=== PATIENT | female | born 1945 | race Caucasian/White ===

== ENCOUNTER 2020-09-13 16:03 | Inpatient (IN) ==
[2020-09-13] MEDS ORDERED: 0.9 % Sodium Chloride 1,000 ML IVC ONE (18:14)
[2020-09-13 19:06] LABS: Bacteria,Urine Few per hpf (None-Few); Bilirubin,Urine Negative (Negative); Blood,Urine Small (Negative); Clarity,Urine Clear (Clear); Color,Urine Light-Yellow (Yellow); Glucose,Urine (UA) Normal (Normal); Ketones,Urine Negative (Negative); Leukocyte Esterase,Urine Large (Negative); Nitrite,Urine Negative (Negative); Protein,Urine 30 mg/dL (Neg-Trace); Specific Gravity,Urine 1.015 (1.010-1.025); Urobilinogen,Urine Normal (Normal); WBC,Urine 30-50 per hpf (0-3)
[2020-09-13 19:13] LABS: Mean Platelet Volume 9.4 fL (9.4-12.4); Nucleated Red Blood Cells 0.2 /100 WBC (0)
[2020-09-13 19:14] LABS: Hematocrit 41.1 % (35.3-44.9); Mean Corpuscular HGB Conc 29.2 g/dL (31.6-35.5); Mean Corpuscular Hemoglobin 23.3 pg (28.0-33.3); Mean Corpuscular Volume 79.8 fL (83.0-100.0); Platelet Count 679 K/mcL (140-400); Red Blood Count 5.15 M/mcL (3.82-4.97); Red Cell Distribution Width 21.2 % (11.5-14.5); White Blood Count 23.3 K/mcL (4.3-11.1)
[2020-09-13 19:21] LABS: INR 1.2; Prothrombin Time 14.3 Seconds (9.4-12.1)
[2020-09-13 19:24] LABS: Activated Partial Thrombo Time 33.8 Seconds (26.0-36.0)
[2020-09-13 19:28] LABS: Albumin/Globulin Ratio 1.5 (1.1-2.2); Bilirubin,Total 2.3 mg/dL (0.3-1.0); Calcium 8.8 mg/dL (8.6-10.3); Globulin 2.6 g/dL (2.4-3.5); Potassium 4.8 mEq/L (3.5-5.1); Total Protein 6.6 g/dL (6.4-8.9)
[2020-09-13 20:05] LABS: Basophils # 0.5 K/mcL (0.0-0.2); Eosinophils # 0.5 K/mcL (0.0-0.6); Lymphocytes # 1.4 K/mcL (0.6-4.6); Monocytes # 0.5 K/mcL (0.0-1.3); Neutrophils # 19.6 K/mcL (1.6-8.9)
[2020-09-13 20:06] LABS: Anisocytosis 2+ (Not Present); Hypochromasia Present (Not Present); Platelet Estimate Increased (Normal); Reactive Lymphocytes Present (Not Present); Toxic Granulation Present (Not Present)
[2020-09-13] MEDS ORDERED: Ondansetron 4 MG/2 ML VIAL IVP PRN (21:21)
[2020-09-13] MEDS ORDERED: *HR* HYDROcodone/Acet 5/325 mg TABLET PO PRN (21:21)
[2020-09-13] MEDS ORDERED: Naloxone 0.4 MG/ML INJ IVP PRN (21:21)
[2020-09-13] MEDS ORDERED: Acetaminophen 325 MG TABLET PO PRN (21:21)
[2020-09-13] MEDS ORDERED: Melatonin 3 MG TABLET PO PRN (21:21)
[2020-09-13] MEDS ORDERED: Dextrose Gel 15 GM/37.5 ML TUBE PO PRN ×2 (21:30)
[2020-09-13] MEDS ORDERED: D5% in Water 1,000 ML IVC PRN (21:30)
[2020-09-13] MEDS ORDERED: *HR* Dextrose 50 % in Water (Vial) 50 ML VIAL IVP PRN (21:30)
[2020-09-13 21:33] LABS: Phosphorous 4.7 mg/dL (2.7-4.5); Uric Acid 8.7 mg/dL (2.3-7.6)
[2020-09-13] MEDS: Ringers Solution, Lactated 1,000 ML IVC SCH (22:14)
[2020-09-13] MEDS: *HR* Heparin 5,000 UNIT/ML VIAL SQ SCH (22:15)
[2020-09-14 05:18] LABS: Hematocrit 41.4 % (35.3-44.9); Mean Corpuscular Hemoglobin 22.8 pg (28.0-33.3); Mean Corpuscular Volume 78.7 fL (83.0-100.0); Mean Platelet Volume 9.4 fL (9.4-12.4); Nucleated Red Blood Cells 0.2 /100 WBC (0); Platelet Count 696 K/mcL (140-400); Red Blood Count 5.26 M/mcL (3.82-4.97); Red Cell Distribution Width 21.2 % (11.5-14.5); White Blood Count 24.3 K/mcL (4.3-11.1)
[2020-09-14 05:23] LABS: Protein/Creatinine Ratio,Urine 0.42 mg/mg (0.00-0.20); Sodium, Urine 60.2 mEq/L
[2020-09-14 05:24] LABS: INR 1.3
[2020-09-14] MEDS: *HR* Heparin 5,000 UNIT/ML VIAL SQ SCH ×3 (05:31→23:12)
[2020-09-14] MEDS: Ringers Solution, Lactated 1,000 ML IVC SCH (05:32)
[2020-09-14 05:34] LABS: Calcium 8.9 mg/dL (8.6-10.3); Magnesium 1.6 mg/dL (1.6-2.6); Potassium 4.4 mEq/L (3.5-5.1)
[2020-09-14 05:45] LABS: Anisocytosis 2+ (Not Present); Eosinophils # 0.5 K/mcL (0.0-0.6); Large Platelets Present (Not Present); Lymphocytes # 2.4 K/mcL (0.6-4.6); Monocytes # 1.5 K/mcL (0.0-1.3); Platelet Estimate Marked Increase (Normal)
[2020-09-14 05:46] LABS: Microcytosis Present (Not Present)
[2020-09-14] MEDS: Insulin LISPRO 300 UNITS/3 ML VIAL SUBQ SCH ×4 (07:18→23:34)
[2020-09-14] MEDS ORDERED: cefTRIAXone 1,000 MG in Water for inj. (sterile) 10 ML IVP SCH (09:00)
[2020-09-14] MEDS ORDERED: Isovue-300 50ML VIAL ONE (11:47)
[2020-09-14] MEDS ORDERED: Albuterol 2.5 MG/3 ML NEBULIZER IH PRN ×2 (12:56→13:06)
[2020-09-14] MEDS ORDERED: Albuterol 2.5 MG/3 ML NEBULIZER ONE (12:59)
[2020-09-14] MEDS ORDERED: Nitroglycerin 0.4 MG TAB.SUBL SL PRN (13:06)
[2020-09-14] MEDS ORDERED: Naloxone 0.4 MG/ML INJ IVP PRN ×2 (13:06→15:08)
[2020-09-14] MEDS ORDERED: Ondansetron 4 MG/2 ML VIAL IVP PRN ×2 (13:06→15:08)
[2020-09-14] MEDS ORDERED: *HR* FentaNYL (PF) 100 MCG/2 ML VIAL IVP PRN (13:06)
[2020-09-14] MEDS ORDERED: *HR* Propofol 200 MG/20 ML VIAL IVP ONE ×2 (13:14→13:51)
[2020-09-14] MEDS ORDERED: Lidocaine -MPF 2% 2 ML VIAL ONE (13:16)
[2020-09-14] MEDS ORDERED: Ondansetron 4 MG/2 ML VIAL ONE (13:18)
[2020-09-14] MEDS ORDERED: *HR* Midazolam HCl 2 MG/2 ML VIAL ONE (13:44)
[2020-09-14] MEDS ORDERED: ALPRAZolam 1 MG TABLET PO PRN (14:53)
[2020-09-14] MEDS ORDERED: FLUoxetine 20 MG CAPSULE PO SCH ×2 (15:00→15:08)
[2020-09-14] MEDS ORDERED: *HR* Dextrose 50 % in Water (Vial) 50 ML VIAL IVP PRN (15:08)
[2020-09-14] MEDS ORDERED: D5% in Water 1,000 ML IVC PRN (15:08)
[2020-09-14] MEDS ORDERED: Melatonin 3 MG TABLET PO PRN (15:08)
[2020-09-14] MEDS ORDERED: ALPRAZOLAM 2 MG PO PRN (15:08)
[2020-09-14] MEDS ORDERED: Dextrose Gel 15 GM/37.5 ML TUBE PO PRN ×2 (15:08)
[2020-09-14] MEDS ORDERED: *HR* HYDROcodone/Acet 5/325 mg TABLET PO PRN (15:08)
[2020-09-14] MEDS: ALPRAZolam 1 MG TABLET PO PRN (16:35)
[2020-09-14] MEDS: FLUoxetine 20 MG CAPSULE PO SCH (19:49)
[2020-09-14] MEDS: Acetaminophen 325 MG TABLET PO PRN (19:59)
[2020-09-14] MEDS ORDERED: NON-FORMULARY MEDICATION 1 EACH EACH (Omeprazole [Prilosec] 40 MG Capsule.Dr) PO SCH (21:00)
[2020-09-14] MEDS ORDERED: Insulin LISPRO 300 UNITS/3 ML VIAL SUBQ SCH (21:00)
[2020-09-15 03:15] LABS: Mean Corpuscular Volume 79.4 fL (83.0-100.0)
[2020-09-15 03:16] LABS: Hematocrit 40.1 % (35.3-44.9); Hemoglobin 11.5 g/dL (11.5-15.4); Mean Corpuscular HGB Conc 28.7 g/dL (31.6-35.5); Mean Corpuscular Hemoglobin 22.8 pg (28.0-33.3); Mean Platelet Volume 9.4 fL (9.4-12.4); Nucleated Red Blood Cells 0.1 /100 WBC (0); Platelet Count 647 K/mcL (140-400); Red Blood Count 5.05 M/mcL (3.82-4.97); Red Cell Distribution Width 21.1 % (11.5-14.5); White Blood Count 27.6 K/mcL (4.3-11.1)
[2020-09-15 03:32] LABS: Albumin 3.8 g/dL (3.5-5.7); Albumin/Globulin Ratio 1.6 (1.1-2.2); Bilirubin,Direct 0.3 mg/dL (0.0-0.2); Bilirubin,Indirect 1.6 mg/dL (0.0-1.0); Bilirubin,Total 1.9 mg/dL (0.3-1.0); Globulin 2.4 g/dL (2.4-3.5); Total Protein 6.2 g/dL (6.4-8.9)
[2020-09-15 03:36] LABS: Calcium 9.1 mg/dL (8.6-10.3); Potassium 5.1 mEq/L (3.5-5.1)
[2020-09-15 03:49] LABS: Anisocytosis 2+ (Not Present); Basophils # 0.8 K/mcL (0.0-0.2); Lymphocytes # 0.6 K/mcL (0.6-4.6); Monocytes # 0.3 K/mcL (0.0-1.3); Neutrophils # 25.1 K/mcL (1.6-8.9); Platelet Estimate Marked Increase (Normal); Toxic Granulation Present (Not Present)
[2020-09-15 03:50] LABS: Large Platelets Present (Not Present); Poikilocytosis 1+ (Not Present); Polychromasia 1+ (Not Present)
[2020-09-15] MEDS: *HR* Heparin 5,000 UNIT/ML VIAL SQ SCH ×3 (05:39→22:34)
[2020-09-15] MEDS: Insulin LISPRO 300 UNITS/3 ML VIAL SUBQ SCH ×4 (07:58→19:19)
[2020-09-15] MEDS: cefTRIAXone 1,000 MG in Water for inj. (sterile) 10 ML IVP SCH (08:38)
[2020-09-15] MEDS: lisinopriL 20 MG TABLET PO SCH (08:48)
[2020-09-15] MEDS: FLUoxetine 20 MG CAPSULE PO SCH ×3 (08:49→19:18)
[2020-09-15] MEDS: atenoloL 25 MG TABLET PO SCH (08:49)
[2020-09-15] MEDS ORDERED: atenoloL 25 MG TABLET PO SCH (09:00)
[2020-09-15] MEDS ORDERED: atenoloL 50 MG TABLET PO SCH (09:00)
[2020-09-15] MEDS: ALPRAZolam 1 MG TABLET PO PRN ×2 (09:47→19:18)
[2020-09-15] MEDS: 0.9 % Sodium Chloride 1,000 ML IVC SCH (12:35)
[2020-09-15] MEDS: Acetaminophen 325 MG TABLET PO PRN (18:10)
[2020-09-16] MEDS: Acetaminophen 325 MG TABLET PO PRN ×2 (00:25→20:09)
[2020-09-16 03:07] LABS: Nucleated Red Blood Cells 0.2 /100 WBC (0)
[2020-09-16 03:09] LABS: Hematocrit 39.4 % (35.3-44.9); Hemoglobin 11.6 g/dL (11.5-15.4); Mean Corpuscular HGB Conc 29.4 g/dL (31.6-35.5); Mean Corpuscular Hemoglobin 23.4 pg (28.0-33.3); Mean Corpuscular Volume 79.6 fL (83.0-100.0); Mean Platelet Volume 9.2 fL (9.4-12.4); Platelet Count 739 K/mcL (140-400); Red Blood Count 4.95 M/mcL (3.82-4.97)
[2020-09-16 03:17] LABS: White Blood Count 31.4 K/mcL (4.3-11.1)
[2020-09-16 03:25] LABS: Albumin 3.9 g/dL (3.5-5.7); Albumin/Globulin Ratio 1.6 (1.1-2.2); Bilirubin,Direct 0.3 mg/dL (0.0-0.2); Bilirubin,Indirect 1.2 mg/dL (0.0-1.0); Bilirubin,Total 1.5 mg/dL (0.3-1.0); Calcium 8.9 mg/dL (8.6-10.3); Globulin 2.5 g/dL (2.4-3.5); Potassium 4.6 mEq/L (3.5-5.1); Total Protein 6.4 g/dL (6.4-8.9)
[2020-09-16 03:34] LABS: Basophils # 0.6 K/mcL (0.0-0.2); Lymphocytes # 1.9 K/mcL (0.6-4.6); Neutrophils # 26.4 K/mcL (1.6-8.9); Platelet Estimate Marked Increase (Normal)
[2020-09-16 03:35] LABS: Anisocytosis 2+ (Not Present); Large Platelets Present (Not Present); Poikilocytosis 1+ (Not Present); Toxic Granulation Present (Not Present)
[2020-09-16] MEDS: 0.9 % Sodium Chloride 1,000 ML IVC SCH (04:18)
[2020-09-16] MEDS: ALPRAZolam 1 MG TABLET PO PRN ×2 (05:08→11:11)
[2020-09-16] MEDS: *HR* Heparin 5,000 UNIT/ML VIAL SQ SCH ×3 (05:10→23:15)
[2020-09-16] MEDS: Insulin LISPRO 300 UNITS/3 ML VIAL SUBQ SCH ×4 (07:37→20:10)
[2020-09-16] MEDS: lisinopriL 20 MG TABLET PO SCH (07:47)
[2020-09-16] MEDS: FLUoxetine 20 MG CAPSULE PO SCH ×3 (07:47→20:09)
[2020-09-16] MEDS: cefTRIAXone 1,000 MG in Water for inj. (sterile) 10 ML IVP SCH (07:47)
[2020-09-16] MEDS: atenoloL 25 MG TABLET PO SCH (07:47)
[2020-09-16] MEDS: ALPRAZolam 1 MG TABLET PO SCH ×2 (15:45→20:09)
[2020-09-17] MEDS: ALPRAZolam 1 MG TABLET PO SCH ×3 (00:46→08:54)
[2020-09-17] MEDS: *HR* Heparin 5,000 UNIT/ML VIAL SQ SCH (05:13)
[2020-09-17 06:30] LABS: Hemoglobin 10.6 g/dL (11.5-15.4); Nucleated Red Blood Cells 0.2 /100 WBC (0)
[2020-09-17 06:32] LABS: Hematocrit 37.1 % (35.3-44.9); Mean Corpuscular HGB Conc 28.6 g/dL (31.6-35.5); Mean Corpuscular Hemoglobin 22.9 pg (28.0-33.3); Mean Corpuscular Volume 80.3 fL (83.0-100.0); Mean Platelet Volume 9.5 fL (9.4-12.4); Platelet Count 661 K/mcL (140-400); Red Blood Count 4.62 M/mcL (3.82-4.97); White Blood Count 26.6 K/mcL (4.3-11.1)
[2020-09-17 06:55] LABS: Albumin 3.7 g/dL (3.5-5.7); Albumin/Globulin Ratio 1.7 (1.1-2.2); Bilirubin,Direct 0.2 mg/dL (0.0-0.2); Bilirubin,Indirect 1.2 mg/dL (0.0-1.0); Bilirubin,Total 1.4 mg/dL (0.3-1.0); Globulin 2.2 g/dL (2.4-3.5); Total Protein 5.9 g/dL (6.4-8.9)
[2020-09-17 07:07] VITALS: BP 132/76; PULSE 64; TEMP 98.1; O2SAT 98
[2020-09-17 07:25] LABS: Calcium 8.4 mg/dL (8.6-10.3); Potassium 4.4 mEq/L (3.5-5.1)
[2020-09-17] MEDS: Insulin LISPRO 300 UNITS/3 ML VIAL SUBQ SCH (07:28)
[2020-09-17 08:02] LABS: Basophils # 1.1 K/mcL (0.0-0.2); Eosinophils # 2.7 K/mcL (0.0-0.6); Lymphocytes # 2.7 K/mcL (0.6-4.6); Neutrophils # 19.2 K/mcL (1.6-8.9)
[2020-09-17 08:03] LABS: Anisocytosis 2+ (Not Present); Polychromasia 1+ (Not Present); Toxic Granulation Present (Not Present)
[2020-09-17 08:04] LABS: Ovalocytes 1+ (Not Present); Platelet Estimate Increased (Normal)
[2020-09-17] MEDS: cefTRIAXone 1,000 MG in Water for inj. (sterile) 10 ML IVP SCH (08:54)
[2020-09-17] MEDS: lisinopriL 20 MG TABLET PO SCH (08:54)
[2020-09-17] MEDS: FLUoxetine 20 MG CAPSULE PO SCH (08:54)
[2020-09-17] MEDS: atenoloL 25 MG TABLET PO SCH (08:54)
== END 2020-09-17 13:30 | disposition home health service (06) | DRG 660 ==
LOC: 3BNU 16:03 → EMEROOARM 16:03 → SUATTDRO 21:06 → 3BNU 21:41
PROVIDERS: ADMIT Family Medicine; ATTEND Internal Medicine